=== PATIENT | female | born 1985 | race Hispanic/Latino ===

== ENCOUNTER 2019-08-15 12:46 | Inpatient (IN) ==
--- NOTE | 2019-08-15 13:27 | PROVIDER DOCUMENTATION ---
This chart was entered by Katie Linares Scribe, acting as scribe for Hima Best MD. HPI-Female /OB/Breast - General Chief Complaint: OB >20 weeks Stated Complaint: HAVING CONTRACTIONS Time Seen by Provider: 08/15/19 13:11 Source: reports: patient, family () Allergies/Adverse Reactions: Patient Allergies Allergy/AdvReac Type Severity Reaction Status Date / Time No Known Allergies Allergy Verified 08/15/19 13:00 - History of Present Illness-Female /OB Nature of Presenting Problem: 33 y/o female presents to the ED with pelvic pain every 10 minutes, . The patient states she is nine months gestation and no care has been received. Does patient report she is ?: Yes (40 weeks ) Quality of Pain: reports: cramping Onset/Duration: reports: this afternoon Timing: reports: getting worse Vaginal Symptoms: reports: no symptoms Vaginal Bleeding Amount: None Urinary Symptoms: reports: no symptoms Similar Symptoms Previously?: Yes Recently seen or treated by another doctor?: No - LMP/ History Menstrual Status: missed : 5 Para: 4 Review of Systems - Adult - REVIEW OF SYSTEMS - ADULT Constitutional: denies: chills, fever, night sweats Eyes: reports: no symptoms reported Ears, Nose, Mouth & Throat: reports: no symptoms reported Cardiovascular: reports: no symptoms reported Respiratory: reports: no symptoms reported Gastrointestinal: denies: constipation, diarrhea, vomiting Genitourinary: reports: other (9 months gestation). denies: dysuria, discharge, hematuria Musculoskeletal: reports: no symptoms reported Integumentary: reports: no symptoms reported Neurological: reports: no symptoms reported Psychiatric: reports: no symptoms reported Endocrine: reports: no symptoms reported Hematologic/Lymphatic: reports: no symptoms reported Allergic/Immunologic: reports: no symptoms reported All Other Systems: Reviewed and Negative Past History - Adult - PAST MEDICAL HISTORY-ADULT Review of Records: reports: Nursing Assessment Review, Medications Reviewed - IMMUNIZATION STATUS Childhood Immunizations: See Nurse Assessment Flu Vaccine: See Nurse Assessment Physical Exam-General - PHYSICAL EXAM-ADULT Initial Vital Signs Reviewed: Yes - CONSTITUTIONAL General Appearance: alert, no apparent distress - RESPIRATORY Respiratory: lungs clear, normal breath sounds. negative: rales, rhonchi, wheezing - CARDIOVASCULAR Cardiovascular: regular rate, rhythm, no gallop - GASTROINTESTINAL (ABDOMEN) Abdominal Exam: non tender, distended - GENITOURINARY Female Genitalia/Pelvic Exam: deferred - MUSCULOSKELETAL Extremity: normal gait - SKIN Integumentary: normal color, warm/dry - NEUROLOGIC Neurologic: grossly normal Progress - PLAN OF CARE/RESULTS Progress/Plan/Lab Results: Vital Signs - 8 hr 08/15/19 12:50 Temperature 98 F Pulse Rate 104 H Respiratory Rate 18 Blood Pressure 147/91 O2 Sat by Pulse Oximetry 95 - REASSESSMENT Reassessment #1 Time Reassessed: 13:20 Status: unchanged (CONTRACTIONS Q 10 MIN, EARLY LABOR V 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 Damon, OB Time Discussed: 13:17 Reason/Comments: 9 months gestation Consult Disposition: Admit (to [facility] FOR MONITORING) Departure - Departure Date of Disposition Decision: 08/15/19 Time of Disposition Decision: 13:19 DIAGNOSIS: Qualifiers: Weeks of gestation: unspecified Qualified Code(s): Z34.90 - Encounter for supervision of normal , unspecified, unspecified trimester Disposition: ADMITTED INPATIENT 09 Certified Medical Emergency: Emergent Condition: Stable Referrals and Follow-Ups: None,PCP [Primary Care Provider] - - Critical Care Note This patient required my direct & personal management of CC.: No Attestation - Physician/ JAMES Attestation Patient care was provided by Advanced Practice Provider:: No The physician spent face to face time with patient:: Yes Advanced Practice Provider documentation review:: Supervising physician onsite and consulted in the evaluation and care of this patient. The physician did have a face to face encounter with the patient. This chart was documented by the indicated scribe, (Katie Linares, Bull) and accurately reflects the services I performed and decisions made by me, Hima Best MD, as attested by the provider's signature.
[2019-08-15] MEDS ORDERED: PEPCID PO ONE (14:40)
[2019-08-15] MEDS ORDERED: PEPCID IV PRN (14:40)
[2019-08-15] MEDS ORDERED: LR 500 ML IV ONE (14:40)
[2019-08-15] MEDS ORDERED: PEPCID PO PRN (14:40)
[2019-08-15] MEDS ORDERED: TYLENOL PO PRN (14:40)
[2019-08-15] MEDS ORDERED: KEFZOL 1 GM/D5W 1 GM/50 ML IVPB IV PRN (14:40)
[2019-08-15] MEDS ORDERED: STADOL IV PRN (14:40)
[2019-08-15] MEDS ORDERED: REGLAN PO ONE (14:40)
[2019-08-15] MEDS ORDERED: ZOFRAN IV PRN (14:40)
[2019-08-15] MEDS ORDERED: AMPICILLIN 2 GM in NS 100 ML IV ONE (14:40)
[2019-08-15] MEDS ORDERED: SODIUM CHLORIDE 0.9% INJ SCH (14:45)
[2019-08-15] MEDS ORDERED: PITOCIN 30 UNITS/NS 30 UNIT/500 ML IV.SOLN IV SCH ×2 (14:45→22:45)
[2019-08-15 15:10] LABS: BASO# 0.01 X1000 (0.0-0.2); BASO% 0.1 % (0.0-0.8); EOS# 0.19 X1000 (0.0-0.7); EOS% 1.8 % (0.0-10.0); HEMATOCRIT 36.5 % (37.0-47.0); HEMOGLOBIN 12.2 g/dL (12.0-16.0); IMM GRAN# 0.03 X1000 (0.0-0.04); IMM GRAN% 0.3 % (0.0-0.5); LYMPH# 2.03 X1000 (1.2-3.4); LYMPH% 19.1 % (20.5-51.1); MCH 28.4 PG (27-31); MCHC 33.4 g/dL (33-37); MCV 84.9 FL (81-99); MONO# 0.48 X1000 (0.11-0.59); MONO% 4.5 % (1.7-9.3); MPV 12.6 FL (7.4-10.4); NEUT# 7.87 X1000 (1.4-6.5); NEUT% 74.2 % (42.2-75.2); PLT 184 X1000 (130-400); RDW 13.4 % (11.5-14.5); WBC 10.61 X1000 (4.8-10.8)
[2019-08-15] MEDS: LR 1,000 ML IV SCH (15:24)
[2019-08-15 15:39] LABS: URINE SOURCE CATH
[2019-08-15 15:47] LABS: BILIRUBIN URINE NEGATIVE (NEGATIVE); BLOOD URINE NEGATIVE (NEGATIVE); COLOR YELLOW; GLUCOSE URINE NEGATIVE (NEGATIVE); KETONE URINE NEGATIVE (NEGATIVE); LEUKOCYTES URINE NEGATIVE (NEGATIVE); NITRITE URINE NEGATIVE (NEGATIVE); PROTEIN URINE TRACE mg/dL (NEGATIVE); SP GRAVITY URINE 1.017; TURBIDITY URINE CLEAR (CLEAR); UROBILINOGEN URINE NORMAL (NORMAL)
[2019-08-15 15:54] LABS: UR AMPHETAMINES QUAL NONE DETECTED (NONE DETECT); UR BARBITUATES QUAL NONE DETECTED (NONE DETECT); UR BENZODIAZEPIN QUAL NONE DETECTED (NONE DETECT); UR CANNABINOIDS QUAL NONE DETECTED (NONE DETECT); UR COCAINE QUAL NONE DETECTED (NONE DETECT); UR METHADONE QUAL NONE DETECTED (NONE DETECT); UR OPIATES QUAL NONE DETECTED (NONE DETECT); UR OXYCODONE QUAL NONE DETECTED (NONE DETECT); UR PCP QUAL NONE DETECTED (NONE DETECT)
[2019-08-15 15:56] LABS: RPR NON-REACTIVE (NONREACTIVE); RUBELLA SCREEN IMMUNE (IMMUNE)
[2019-08-15 15:58] LABS: RAPID HIV PRESUMPTIVE NEGATIVE
--- NOTE | 2019-08-15 16:05 | OB/GYN PROGRESS NOTE ---
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 PATHOLOGY ASSISTANT Progress Note: Vital Signs - 24 hr 08/15/19 12:50 08/15/19 14:45 Temperature 98 F 97.7 F Pulse Rate 104 H 100 H Respiratory Rate 18 20 Blood Pressure 147/91 138/74 O2 Sat by Pulse Oximetry 95 98 Laboratory Results - last 24 hr 08/15/19 08/15/19 08/15/19 14:50 14:50 14:50 WBC 10.61 RBC 4.30 Hgb 12.2 Hct 36.5 L MCV 84.9 MCH 28.4 MCHC 33.4 RDW Std Deviation 13.4 Plt Count 184 MPV 12.6 H Immature Gran % (Auto) 0.3 Neut % (Auto) 74.2 Lymph % (Auto) 19.1 L [place] % (Auto) 4.5 Eos % (Auto) 1.8 Baso % (Auto) 0.1 Immature Gran # (Auto) 0.03 Neut # (Auto) 7.87 H Lymph # (Auto) 2.03 [place] # (Auto) 0.48 Eos # (Auto) 0.19 Baso # (Auto) 0.01 Glucose 93 Urine Source Urine Color Urine Turbidity Urine pH Ur Specific [place] Urine Protein Ur Glucose (Stick) Ur Ketones (Stick) Urine Blood Urine Nitrite Urine Bilirubin Urobilinogen Dipstick Urine Leukocytes Urine Opiates Screen Ur Oxycodone Screen Ur Methadone, Qual Ur Barbiturates Screen Ur Phencyclidine Scrn Ur Amphetamines Screen U Benzodiazepines Scrn Urine Cocaine Screen U Cannabinoids Screen RPR NON-REACTIVE Rubella Immunity Screen IMMUNE Blood Type Antibody Screen 08/15/19 08/15/19 08/15/19 14:50 15:30 15:30 WBC RBC Hgb Hct MCV MCH MCHC RDW Std Deviation Plt Count MPV Immature Gran % (Auto) Neut % (Auto) Lymph % (Auto) [place] % (Auto) Eos % (Auto) Baso % (Auto) Immature Gran # (Auto) Neut # (Auto) Lymph # (Auto) [place] # (Auto) Eos # (Auto) Baso # (Auto) Glucose Urine Source CATH Urine Color YELLOW Urine Turbidity CLEAR Urine pH 6.0 Ur Specific [place] 1.017 Urine Protein TRACE A Ur Glucose (Stick) NEGATIVE Ur Ketones (Stick) NEGATIVE Urine Blood NEGATIVE Urine Nitrite NEGATIVE Urine Bilirubin NEGATIVE Urobilinogen Dipstick NORMAL Urine Leukocytes NEGATIVE Urine Opiates Screen NONE DETECTED Ur Oxycodone Screen NONE DETECTED Ur Methadone, Qual NONE DETECTED Ur Barbiturates Screen NONE DETECTED Ur Phencyclidine Scrn NONE DETECTED Ur Amphetamines Screen NONE DETECTED U Benzodiazepines Scrn NONE DETECTED Urine Cocaine Screen NONE DETECTED U Cannabinoids Screen NONE DETECTED RPR Rubella Immunity Screen Blood Type B POSITIVE Antibody Screen NEGATIVE HISTORY AND PHYSICAL History obtained via a [place]er phone ict teacher from the patient and from her . S: 33 yo [place] presenting to [facility] and transferred to [facility] with 10 min uterine contractions and DELIO 08-16-2019 by a single sono at uncertain EGA and no other care. She notes onset of intermittent labor pains 0600, an episode of bleeding, and no further bleeding and no ROM, no decreased movement, and no PIH symptoms. triage evaluation includes 6 cm, high station, BOWI and category I tracing from baseline 140 Other ROS is clear Ob history includes three deliveries in [facility], one "here", with no medical, obstetric, delivery or complications by her history. PMHx is neg for allergies; hospitalizations other than deliveries; surgery; medications; or ongoing medical problems SocHx negative for toxic habits Exam NAD HEENT NC AT Chest clear to auscultation to bases. Nl respiratory effort Abd soft, nontender : Fundus soft between UCs, nontender, longitudinal lie, c/w term dates. Bedside sono confirms cephalic presentation and subjectively normal AFV Neruo intact MSK nl gait Ext no tenderness or excessive swelling heart rate tracing Category I, reactive, baseline 140, moderate external BTBV, accelerations, episodes of missed beats, UCs 3-4 50-60 seconds duration All Active Problems (Acute) Multigravida of advanced maternal age in third trimester (Acute) No care in current in third trimester (Acute) Irregular heart rhythm in fetus (Acute) Non-Divehi speaking patient (Acute) PLAN Presumptive Ampicillin prophylaxis maternal monitoring AROM when appropriate Expect Analgesia declined Notidy nursery of absent PNC, presumptive GBS prophylaxis, episodic missed beats
--- NOTE | 2019-08-15 18:12 | OB/GYN PROGRESS NOTE ---
- Subjective Pt notes increased contraction pain O VSS AF category I FHRT UCs q3 min SVE /-2 BOWI bulging with small amount blood stained mucous "show" A/P Continue labor Second dose Ampicillin due 1900 Nursery aware OB Physical Exam Vital Signs - 8 hr 08/15/19 12:50 08/15/19 14:45 Temperature 98 F 97.7 F Pulse Rate 104 H 100 H Respiratory Rate 18 20 Blood Pressure 147/91 138/74 O2 Sat by Pulse Oximetry 95 98 - CONSTITUTIONAL General Appearance: alert, no apparent distress Active Medications Generic Name Dose Route Start Last Admin Trade Name Freq PRN Reason Stop Dose Admin Acetaminophen 650 mg 08/15/19 14:40 Tylenol PO Q4-6H PRN PRN Headache Butorphanol Tartrate 2 mg 08/15/19 14:40 Stadol IV PRN PRN Pain Famotidine 20 mg 08/15/19 14:40 Pepcid IV Q12H PRN PRN GI upset or indigestion Famotidine 40 mg 08/15/19 14:40 Pepcid PO Q12H PRN PRN GI upset or indigestion Ampicillin Sodium 1 gm/ Sodium 50 mls @ 100 mls/hr 08/15/19 18:45 Chloride IV Q4H DELIO Cefazolin Sodium/Dextrose 1 gm in 50 mls @ 100 mls/hr 08/15/19 14:40 Kefzol 1 Gm/D5w IV ONCE PRN PRN SECTION Lactated Ringer's 1,000 mls @ 125 mls/hr 08/15/19 14:45 08/15/19 15:24 Lr IV 125 mls/hr .Q8H DELIO Administration Oxytocin/Sodium Chloride 30 unit in 500 mls @ 0 mls/hr 08/15/19 14:45 Pitocin 30 Units/Ns IV .Q0M DELIO As Directed Ondansetron HCl 4 mg 08/15/19 14:40 Zofran IV PRN PRN Nausea Sodium Chloride 5 - 10 ml 08/15/19 14:45 Sodium Chloride 0.9% INJ DIRECTED DELIO Laboratory Results - last 24 hr 08/15/19 08/15/19 08/15/19 14:50 14:50 14:50 WBC 10.61 RBC 4.30 Hgb 12.2 Hct 36.5 L MCV 84.9 MCH 28.4 MCHC 33.4 RDW Std Deviation 13.4 Plt Count 184 MPV 12.6 H Immature Gran % (Auto) 0.3 Neut % (Auto) 74.2 Lymph % (Auto) 19.1 L [place] % (Auto) 4.5 Eos % (Auto) 1.8 Baso % (Auto) 0.1 Immature Gran # (Auto) 0.03 Neut # (Auto) 7.87 H Lymph # (Auto) 2.03 [place] # (Auto) 0.48 Eos # (Auto) 0.19 Baso # (Auto) 0.01 Glucose 93 Urine Source Urine Color Urine Turbidity Urine pH Ur Specific [place] Urine Protein Ur Glucose (Stick) Ur Ketones (Stick) Urine Blood Urine Nitrite Urine Bilirubin Urobilinogen Dipstick Urine Leukocytes Urine Opiates Screen Ur Oxycodone Screen Ur Methadone, Qual Ur Barbiturates Screen Ur Phencyclidine Scrn Ur Amphetamines Screen U Benzodiazepines Scrn Urine Cocaine Screen U Cannabinoids Screen RPR NON-REACTIVE HIV 1&2 Antibody Rapid PRESUMPTIVE NEGATIVE Rubella Immunity Screen IMMUNE Blood Type Blood Type Confirm Antibody Screen 08/15/19 08/15/19 08/15/19 14:50 15:30 15:30 WBC RBC Hgb Hct MCV MCH MCHC RDW Std Deviation Plt Count MPV Immature Gran % (Auto) Neut % (Auto) Lymph % (Auto) [place] % (Auto) Eos % (Auto) Baso % (Auto) Immature Gran # (Auto) Neut # (Auto) Lymph # (Auto) [place] # (Auto) Eos # (Auto) Baso # (Auto) Glucose Urine Source CATH Urine Color YELLOW Urine Turbidity CLEAR Urine pH 6.0 Ur Specific [place] 1.017 Urine Protein TRACE A Ur Glucose (Stick) NEGATIVE Ur Ketones (Stick) NEGATIVE Urine Blood NEGATIVE Urine Nitrite NEGATIVE Urine Bilirubin NEGATIVE Urobilinogen Dipstick NORMAL Urine Leukocytes NEGATIVE Urine Opiates Screen NONE DETECTED Ur Oxycodone Screen NONE DETECTED Ur Methadone, Qual NONE DETECTED Ur Barbiturates Screen NONE DETECTED Ur Phencyclidine Scrn NONE DETECTED Ur Amphetamines Screen NONE DETECTED U Benzodiazepines Scrn NONE DETECTED Urine Cocaine Screen NONE DETECTED U Cannabinoids Screen NONE DETECTED RPR HIV 1&2 Antibody Rapid Rubella Immunity Screen Blood Type B POSITIVE Blood Type Confirm Antibody Screen NEGATIVE 08/15/19 15:45 WBC RBC Hgb Hct MCV MCH MCHC RDW Std Deviation Plt Count MPV Immature Gran % (Auto) Neut % (Auto) Lymph % (Auto) [place] % (Auto) Eos % (Auto) Baso % (Auto) Immature Gran # (Auto) Neut # (Auto) Lymph # (Auto) [place] # (Auto) Eos # (Auto) Baso # (Auto) Glucose Urine Source Urine Color Urine Turbidity Urine pH Ur Specific [place] Urine Protein Ur Glucose (Stick) Ur Ketones (Stick) Urine Blood Urine Nitrite Urine Bilirubin Urobilinogen Dipstick Urine Leukocytes Urine Opiates Screen Ur Oxycodone Screen Ur Methadone, Qual Ur Barbiturates Screen Ur Phencyclidine Scrn Ur Amphetamines Screen U Benzodiazepines Scrn Urine Cocaine Screen U Cannabinoids Screen RPR HIV 1&2 Antibody Rapid Rubella Immunity Screen Blood Type Blood Type Confirm B POSITIVE Antibody Screen
[2019-08-15] MEDS: AMPICILLIN 1 GM in NS 50 ML IV SCH (19:01)
[2019-08-15] MEDS ORDERED: XYLOCAINE-MPF 1% INJ ONE (19:06)
[2019-08-15] MEDS ORDERED: MINERAL OIL PO ONE (19:06)
[2019-08-15] MEDS ORDERED: TYLENOL PO ONE (20:25)
[2019-08-15] MEDS ORDERED: BOOSTRIX VACCINE IM ONE (22:41)
[2019-08-15] MEDS ORDERED: CYTOTEC PO PRN (22:41)
[2019-08-15] MEDS ORDERED: MINERAL OIL PO PRN (22:41)
[2019-08-15] MEDS ORDERED: BENADRYL PO PRN (22:41)
[2019-08-15] MEDS ORDERED: BENADRYL IV PRN (22:41)
[2019-08-15] MEDS ORDERED: PERI MEDS (DERMOPLAST/NUPERCAINAL/TUCKS) MISC PRN (22:41)
[2019-08-15] MEDS ORDERED: M-M-R II VACCINE SUBQ ONE (22:41)
[2019-08-15] MEDS ORDERED: PITOCIN IM PRN (22:41)
--- NOTE | 2019-08-15 22:41 | OB/GYN PROGRESS NOTE ---
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 Progress Note: Vital Signs - 24 hr 08/15/19 12:50 08/15/19 14:45 Temperature 98 F 97.7 F Pulse Rate 104 H 100 H Respiratory Rate 18 20 Blood Pressure 147/91 138/74 O2 Sat by Pulse Oximetry 95 98 Laboratory Results - last 24 hr 08/15/19 08/15/19 08/15/19 14:50 14:50 14:50 WBC 10.61 RBC 4.30 Hgb 12.2 Hct 36.5 L MCV 84.9 MCH 28.4 MCHC 33.4 RDW Std Deviation 13.4 Plt Count 184 MPV 12.6 H Immature Gran % (Auto) 0.3 Neut % (Auto) 74.2 Lymph % (Auto) 19.1 L [place] % (Auto) 4.5 Eos % (Auto) 1.8 Baso % (Auto) 0.1 Immature Gran # (Auto) 0.03 Neut # (Auto) 7.87 H Lymph # (Auto) 2.03 [place] # (Auto) 0.48 Eos # (Auto) 0.19 Baso # (Auto) 0.01 Glucose 93 Urine Source Urine Color Urine Turbidity Urine pH Ur Specific [place] Urine Protein Ur Glucose (Stick) Ur Ketones (Stick) Urine Blood Urine Nitrite Urine Bilirubin Urobilinogen Dipstick Urine Leukocytes Urine Opiates Screen Ur Oxycodone Screen Ur Methadone, Qual Ur Barbiturates Screen Ur Phencyclidine Scrn Ur Amphetamines Screen U Benzodiazepines Scrn Urine Cocaine Screen U Cannabinoids Screen RPR NON-REACTIVE HIV 1&2 Antibody Rapid PRESUMPTIVE NEGATIVE Rubella Immunity Screen IMMUNE Blood Type Blood Type Confirm Antibody Screen 08/15/19 08/15/19 08/15/19 14:50 15:30 15:30 WBC RBC Hgb Hct MCV MCH MCHC RDW Std Deviation Plt Count MPV Immature Gran % (Auto) Neut % (Auto) Lymph % (Auto) [place] % (Auto) Eos % (Auto) Baso % (Auto) Immature Gran # (Auto) Neut # (Auto) Lymph # (Auto) [place] # (Auto) Eos # (Auto) Baso # (Auto) Glucose Urine Source CATH Urine Color YELLOW Urine Turbidity CLEAR Urine pH 6.0 Ur Specific [place] 1.017 Urine Protein TRACE A Ur Glucose (Stick) NEGATIVE Ur Ketones (Stick) NEGATIVE Urine Blood NEGATIVE Urine Nitrite NEGATIVE Urine Bilirubin NEGATIVE Urobilinogen Dipstick NORMAL Urine Leukocytes NEGATIVE Urine Opiates Screen NONE DETECTED Ur Oxycodone Screen NONE DETECTED Ur Methadone, Qual NONE DETECTED Ur Barbiturates Screen NONE DETECTED Ur Phencyclidine Scrn NONE DETECTED Ur Amphetamines Screen NONE DETECTED U Benzodiazepines Scrn NONE DETECTED Urine Cocaine Screen NONE DETECTED U Cannabinoids Screen NONE DETECTED RPR HIV 1&2 Antibody Rapid Rubella Immunity Screen Blood Type B POSITIVE Blood Type Confirm Antibody Screen NEGATIVE 08/15/19 15:45 WBC RBC Hgb Hct MCV MCH MCHC RDW Std Deviation Plt Count MPV Immature Gran % (Auto) Neut % (Auto) Lymph % (Auto) [place] % (Auto) Eos % (Auto) Baso % (Auto) Immature Gran # (Auto) Neut # (Auto) Lymph # (Auto) [place] # (Auto) Eos # (Auto) Baso # (Auto) Glucose Urine Source Urine Color Urine Turbidity Urine pH Ur Specific [place] Urine Protein Ur Glucose (Stick) Ur Ketones (Stick) Urine Blood Urine Nitrite Urine Bilirubin Urobilinogen Dipstick Urine Leukocytes Urine Opiates Screen Ur Oxycodone Screen Ur Methadone, Qual Ur Barbiturates Screen Ur Phencyclidine Scrn Ur Amphetamines Screen U Benzodiazepines Scrn Urine Cocaine Screen U Cannabinoids Screen RPR HIV 1&2 Antibody Rapid Rubella Immunity Screen Blood Type Blood Type Confirm B POSITIVE Antibody Screen DELIVERY NOTE All Active Problems Meconium stained amniotic fluid, delivered, current hospitalization (Acute) Nuchal cord with compression, delivered, current hospitalization (Acute) Non-Swazi speaking patient (Acute) Irregular heart rhythm in fetus (Acute) No care in current in third trimester (Acute) Multigravida of advanced maternal age in third trimester (Acute) (Acute) PROCEDURE: Spontaneous sterile controlled vaginal delivery ATTENDANT: Jose F Bryant MD COMPLICATIONS: None EBL: 150 mL PROPHYLAXIS: Ampicillin 2 g (2 doses) COMPLICATIONS: None FINDINGS: VMI from CHINEDU position over intact perineum at 2134 hours, with tight nuchal cord x 2 clamped and cut on the perineum Apgars 7, 10 Arterial cord gas with pH 7.25, pCO2 55, pO2 13, HCO3 19.1, base excess -4.2 Three vessel cord. Pale green stained placenta and membranes without significant infarctions or calcifications Bimanual massage with good tone and no retained clot or products. Cervix, upper vagina, vulva, and perineum free of lacerations. LABOR COURSE: Following presentation early afternoon at 6 cm and high station, the patient progressed spontaneously to 8/90%/-2 BOWI at ~1800 hours. at ~2000 hours the patient complained of a headache and feeling flushed with temperature 100 degrees. Tracing remained Category I throughout until AROM of thick, pale green meconium at 2124 hours with cervix 8/100/-1 with thickening of the right anterior cervix. Deep variables to 60 bpm occured, managed with positioning and IV fluid bolus. Re-examination revealed descent to 0+ station and involuntary pushing. DELIVERY: I assisted with positioning the patient for delivery and reduced the cervical lip with massage while nursery personnel and plastic molding operator controlled atmospheric furnace brazer were notified. Prompt decent to occurred followed by a controlled sterile vaginal delivery. (The perineum had been cleansed just prior to AROM.) Tight nuchal cord x 2 required sharp reduction. Gentle traction on the head was used to guide the shoulders and completed the delivery The child was handed to nursing staff in attendance. Infusion of Pitocin was initiated. A segment of cord was clamped and cut for arterial gases. Cord blood sample was obtained. Placenta was delivered with gentle traction and fundal massage at 2140 hours. Bimanual massage was completed. Cervix, upper vagina, vulva and perineum were examined. DISPOSITION: At this dictation, mother and child are doing well.
[2019-08-15] MEDS ORDERED: PITOCIN 20 UNITS/NS 20 UNITS/1,000 ML IV.SOLN IV SCH (22:45)
[2019-08-15] MEDS: MOTRIN PO PRN (23:09)
--- NOTE | 2019-08-15 23:37 | PROVIDER PROGRESS NOTE ---
Progress Note blood pressure elevation has persisted ~170/70 Initial labs included normal platelets Will begin Labetalol 100 mg q12h and check PIH labs
[2019-08-16 00:01] LABS: BASO# 0.01 X1000 (0.0-0.2); BASO% 0.1 % (0.0-0.8); EOS# 0.02 X1000 (0.0-0.7); EOS% 0.1 % (0.0-10.0); HEMATOCRIT 35.9 % (37.0-47.0); HEMOGLOBIN 11.9 g/dL (12.0-16.0); IMM GRAN# 0.06 X1000 (0.0-0.04); IMM GRAN% 0.4 % (0.0-0.5); LYMPH# 1.34 X1000 (1.2-3.4); LYMPH% 8.2 % (20.5-51.1); MCH 28.1 PG (27-31); MCHC 33.1 g/dL (33-37); MCV 84.9 FL (81-99); MONO# 0.64 X1000 (0.11-0.59); MONO% 3.9 % (1.7-9.3); NEUT# 14.26 X1000 (1.4-6.5); NEUT% 87.3 % (42.2-75.2); PLT 163 X1000 (130-400); RBC 4.23 XMIL (4.2-5.4); RDW 13.3 % (11.5-14.5); WBC 16.33 X1000 (4.8-10.8)
[2019-08-16] MEDS: TRANDATE PO SCH ×3 (00:06→21:03)
[2019-08-16 00:27] LABS: BANDS 2 % (0-1); LYMPHS 8 % (21-51); SEGS 88 % (42-75)
[2019-08-16 00:37] LABS: AGAP 17; ALB/GLOB RATIO 0.9; ALBUMIN 2.8 g/dL (3.5-5.0); ALKALINE PHOSPHATASE 159 U/L (32-104); BUN 8 mg/dL (8-22); CALCIUM 7.9 mg/dL (8.8-10.2); CHLORIDE 102 mmol/L (98-107); COSMO 271; CREATININE 0.4 mg/dL (0.5-0.9); ESTIMATED GFR > 60; GLUCOSE 146 mg/dL (70-104); GOT 28 U/L (10-30); GPT 18 U/L (10-36); POTASSIUM 3.5 mmol/L (3.5-5.1); SODIUM 135 mmol/L (136-145); TCO2 16 mmol/L (25-35); TOTAL BILIRUBIN 0.45 mg/dL (0.20-1.00); TOTAL PROTEIN 5.8 g/dL (6.3-8.3); URIC ACID 5.4 mg/dL (2.4-5.7)
[2019-08-16] MEDS: LR 1,000 ML IV SCH (02:24)
[2019-08-16] MEDS: AMPICILLIN 1 GM in NS 50 ML IV SCH (02:24)
[2019-08-16 05:06] LABS: BASO# 0.01 X1000 (0.0-0.2); BASO% 0.1 % (0.0-0.8); EOS# 0.02 X1000 (0.0-0.7); EOS% 0.1 % (0.0-10.0); HEMOGLOBIN 10.8 g/dL (12.0-16.0); IMM GRAN# 0.05 X1000 (0.0-0.04); IMM GRAN% 0.3 % (0.0-0.5); LYMPH# 2.23 X1000 (1.2-3.4); LYMPH% 14.6 % (20.5-51.1); MCH 27.8 PG (27-31); MCHC 32.7 g/dL (33-37); MCV 84.8 FL (81-99); MONO# 0.75 X1000 (0.11-0.59); MONO% 4.9 % (1.7-9.3); NEUT# 12.19 X1000 (1.4-6.5); PLT 175 X1000 (130-400); RBC 3.89 XMIL (4.2-5.4); RDW 13.3 % (11.5-14.5); WBC 15.25 X1000 (4.8-10.8)
--- NOTE | 2019-08-16 07:53 | OB/GYN PROGRESS NOTE ---
Progress Note [employer] [employer] - . Patient Problems: Current Active Problems Problem Status Onset induced hypertension, delivered, with complication Acute Nuchal cord with compression, delivered, current hospitalization Acute Meconium stained amniotic fluid, delivered, current hospitalization Acute Non-Pakistani speaking patient Acute Irregular heart rhythm in fetus Acute No care in current in third trimester Acute Multigravida of advanced maternal age in third trimester Acute Acute [employer] Progress Note: Vital Signs - 24 hr 08/15/19 12:50 08/15/19 14:45 08/15/19 19:00 Temperature 98 F 97.7 F 98.7 F Pulse Rate 104 H 100 H 82 Respiratory Rate 18 20 18 Blood Pressure 147/91 138/74 143/80 O2 Sat by Pulse Oximetry 95 98 97 08/15/19 20:00 08/15/19 21:15 08/15/19 21:45 Temperature 98.9 F 100 F H 99.3 F Pulse Rate 73 83 81 Respiratory Rate 18 18 18 Blood Pressure 150/82 144/89 157/71 O2 Sat by Pulse Oximetry 96 96 100 08/16/19 01:06 08/16/19 04:00 Temperature 97.9 F Pulse Rate 69 66 Respiratory Rate 16 16 Blood Pressure 148/65 142/65 O2 Sat by Pulse Oximetry 98 98 Laboratory Results - last 24 hr 08/15/19 08/15/19 08/15/19 14:50 14:50 14:50 WBC 10.61 RBC 4.30 Hgb 12.2 Hct 36.5 L MCV 84.9 MCH 28.4 MCHC 33.4 RDW Std Deviation 13.4 Plt Count 184 MPV 12.6 H Immature Gran % (Auto) 0.3 Neut % (Auto) 74.2 Lymph % (Auto) 19.1 L [place] % (Auto) 4.5 Eos % (Auto) 1.8 Baso % (Auto) 0.1 Immature Gran # (Auto) 0.03 Neut # (Auto) 7.87 H Lymph # (Auto) 2.03 [place] # (Auto) 0.48 Eos # (Auto) 0.19 Baso # (Auto) 0.01 Segmented Neutrophils Band Neutrophils Lymphocytes Unidentified Cells Sodium Potassium Chloride Carbon Dioxide Anion Gap BUN Creatinine Estimated GFR/1.73 m2 BUN/Creatinine Ratio Glucose 93 Calculated Osmolality Uric Acid Calcium Total Bilirubin AST ALT Alkaline Phosphatase Total Protein Albumin Globulin Albumin/Globulin Ratio Urine Source Urine Color Urine Turbidity Urine pH Ur Specific [place] Urine Protein Ur Glucose (Stick) Ur Ketones (Stick) Urine Blood Urine Nitrite Urine Bilirubin Urobilinogen Dipstick Urine Leukocytes Urine Opiates Screen Ur Oxycodone Screen Ur Methadone, Qual Ur Barbiturates Screen Ur Phencyclidine Scrn Ur Amphetamines Screen U Benzodiazepines Scrn Urine Cocaine Screen U Cannabinoids Screen RPR NON-REACTIVE HIV 1&2 Antibody Rapid PRESUMPTIVE NEGATIVE Rubella Immunity Screen IMMUNE Blood Type Blood Type Confirm Antibody Screen 08/15/19 08/15/19 08/15/19 14:50 15:30 15:30 WBC RBC Hgb Hct MCV MCH MCHC RDW Std Deviation Plt Count MPV Immature Gran % (Auto) Neut % (Auto) Lymph % (Auto) [place] % (Auto) Eos % (Auto) Baso % (Auto) Immature Gran # (Auto) Neut # (Auto) Lymph # (Auto) [place] # (Auto) Eos # (Auto) Baso # (Auto) Segmented Neutrophils Band Neutrophils Lymphocytes Unidentified Cells Sodium Potassium Chloride Carbon Dioxide Anion Gap BUN Creatinine Estimated GFR/1.73 m2 BUN/Creatinine Ratio Glucose Calculated Osmolality Uric Acid Calcium Total Bilirubin AST ALT Alkaline Phosphatase Total Protein Albumin Globulin Albumin/Globulin Ratio Urine Source CATH Urine Color YELLOW Urine Turbidity CLEAR Urine pH 6.0 Ur Specific [place] 1.017 Urine Protein TRACE A Ur Glucose (Stick) NEGATIVE Ur Ketones (Stick) NEGATIVE Urine Blood NEGATIVE Urine Nitrite NEGATIVE Urine Bilirubin NEGATIVE Urobilinogen Dipstick NORMAL Urine Leukocytes NEGATIVE Urine Opiates Screen NONE DETECTED Ur Oxycodone Screen NONE DETECTED Ur Methadone, Qual NONE DETECTED Ur Barbiturates Screen NONE DETECTED Ur Phencyclidine Scrn NONE DETECTED Ur Amphetamines Screen NONE DETECTED U Benzodiazepines Scrn NONE DETECTED Urine Cocaine Screen NONE DETECTED U Cannabinoids Screen NONE DETECTED RPR HIV 1&2 Antibody Rapid Rubella Immunity Screen Blood Type B POSITIVE Blood Type Confirm Antibody Screen NEGATIVE 08/15/19 08/15/19 08/15/19 15:45 23:47 23:47 WBC 16.33 H RBC 4.23 Hgb 11.9 L Hct 35.9 L MCV 84.9 MCH 28.1 MCHC 33.1 RDW Std Deviation 13.3 Plt Count 163 MPV 12.0 H Immature Gran % (Auto) 0.4 Neut % (Auto) 87.3 H Lymph % (Auto) 8.2 L [place] % (Auto) 3.9 Eos % (Auto) 0.1 Baso % (Auto) 0.1 Immature Gran # (Auto) 0.06 H Neut # (Auto) 14.26 H Lymph # (Auto) 1.34 [place] # (Auto) 0.64 H Eos # (Auto) 0.02 Baso # (Auto) 0.01 Segmented Neutrophils 88 H Band Neutrophils 2 H Lymphocytes 8 L Unidentified Cells 2.0 Sodium 135 L Potassium 3.5 Chloride 102 Carbon Dioxide 16 L Anion Gap 17 BUN 8 Creatinine 0.4 L Estimated GFR/1.73 m2 > 60 BUN/Creatinine Ratio 20 Glucose 146 H D Calculated Osmolality 271 Uric Acid 5.4 Calcium 7.9 L Total Bilirubin 0.45 AST 28 ALT 18 Alkaline Phosphatase 159 H Total Protein 5.8 L Albumin 2.8 L Globulin 3.0 Albumin/Globulin Ratio 0.9 Urine Source Urine Color Urine Turbidity Urine pH Ur Specific [place] Urine Protein Ur Glucose (Stick) Ur Ketones (Stick) Urine Blood Urine Nitrite Urine Bilirubin Urobilinogen Dipstick Urine Leukocytes Urine Opiates Screen Ur Oxycodone Screen Ur Methadone, Qual Ur Barbiturates Screen Ur Phencyclidine Scrn Ur Amphetamines Screen U Benzodiazepines Scrn Urine Cocaine Screen U Cannabinoids Screen RPR HIV 1&2 Antibody Rapid Rubella Immunity Screen Blood Type Blood Type Confirm B POSITIVE Antibody Screen 08/16/19 08/16/19 05:03 05:03 WBC 15.25 H RBC 3.89 L Hgb 10.8 L Hct 33.0 L MCV 84.8 MCH 27.8 MCHC 32.7 L RDW Std Deviation 13.3 Plt Count 175 MPV 12.0 H Immature Gran % (Auto) 0.3 Neut % (Auto) 80.0 H Lymph % (Auto) 14.6 L [place] % (Auto) 4.9 Eos % (Auto) 0.1 Baso % (Auto) 0.1 Immature Gran # (Auto) 0.05 H Neut # (Auto) 12.19 H Lymph # (Auto) 2.23 [place] # (Auto) 0.75 H Eos # (Auto) 0.02 Baso # (Auto) 0.01 Segmented Neutrophils Band Neutrophils Lymphocytes Unidentified Cells Sodium Potassium Chloride Carbon Dioxide Anion Gap BUN Creatinine Estimated GFR/1.73 m2 BUN/Creatinine Ratio Glucose 106 H Calculated Osmolality Uric Acid Calcium Total Bilirubin AST ALT Alkaline Phosphatase Total Protein Albumin Globulin Albumin/Globulin Ratio Urine Source Urine Color Urine Turbidity Urine pH Ur Specific [place] Urine Protein Ur Glucose (Stick) Ur Ketones (Stick) Urine Blood Urine Nitrite Urine Bilirubin Urobilinogen Dipstick Urine Leukocytes Urine Opiates Screen Ur Oxycodone Screen Ur Methadone, Qual Ur Barbiturates Screen Ur Phencyclidine Scrn Ur Amphetamines Screen U Benzodiazepines Scrn Urine Cocaine Screen U Cannabinoids Screen RPR HIV 1&2 Antibody Rapid Rubella Immunity Screen Blood Type Blood Type Confirm Antibody Screen Day #1/2 S: Patient interviewed with litigation counsel phone line #[phone]. She denies further headache, as well as visual changes, upper abdominal pain, or increased facial, hand or lower extremity edema. She requests a note for her daughter to stay O: Elevated BP 170/70 immediately noted with good response to Labetalol 100 mg q12h and labs normal. She noted a headache during labor, resolved post delivery. Recheck fasting BG 106 mg/dL Labs as noted above Exam: NAD. Good spirits Chest nl respiratory effort, clear to auscultation to the bases CVS RRR w/o murmurs Abdomen soft, nonteedr fundus firm u-2 Neuro Patellar DTR 2+. Clonus absent All Active Problems induced hypertension, delivered, with complication (Acute) Nuchal cord with compression, delivered, current hospitalization (Acute) Meconium stained amniotic fluid, delivered, current hospitalization (Acute) Non-Pakistani speaking patient (Acute) Irregular heart rhythm in fetus (Acute) No care in current in third trimester (Acute) Multigravida of advanced maternal age in third trimester (Acute) (Acute) PLAN: Continue IV lock until this evening as lomng as BP nl Observe closely for pre syncope on Labetalol check [id number] Anticipate DC tomorrow SW consult prior to discharge Excuse for school for her daughter michael Jane for two weeks until patient is able to take her to the bus stop.
[2019-08-16] MEDS: MOTRIN PO PRN ×2 (08:30→21:03)
[2019-08-16 09:02] LABS: HEMOGLOBIN A1C 6.2 % (4.8-6.0)
[2019-08-16 09:28] LABS: HIV ANTIBODY SCREEN SEE COMMENTS
[2019-08-16 10:00] LABS: HEPATITIS B SURFACE ANTIGEN SEE COMMENTS
[2019-08-16] MEDS ORDERED: PERICOLACE PO SCH (21:00)
--- NOTE | 2019-08-17 07:23 | OB/GYN PROGRESS NOTE ---
- Subjective Pt seen and examined. Currently w/o complaints. Ambulating and urinating without difficulty. Tolerating regular diet. Denies pain, winters, sob, scotomata, epigastric pain, fever, chills, n/v. +Bottle feeding, decreased lochia. OB Physical Exam Vital Signs - 8 hr 08/17/19 00:35 08/17/19 04:35 Temperature 97.2 F L 98.1 F Pulse Rate 64 81 Respiratory Rate 16 16 Blood Pressure 146/70 121/73 O2 Sat by Pulse Oximetry 96 96 - CONSTITUTIONAL General Appearance: appears well, alert, no apparent distress - RESPIRATORY Respiratory: lungs clear, normal breath sounds - CARDIOVASCULAR Cardiovascular: regular rate, rhythm - GASTROINTESTINAL (ABDOMEN) Abdominal Exam: non tender, soft (FF below umbilicus) - GENITOURINARY Female Genitalia/Pelvic Exam: external exam normal (decreased lochia) - MUSCULOSKELETAL Extremity: non-tender, no calf tenderness - PSYCHIATRIC Psych/Mental Status: normal mood/affect, oriented x 3 Active Medications Generic Name Dose Route Start Last Admin Trade Name Freq PRN Reason Stop Dose Admin Acetaminophen 650 mg 08/15/19 14:40 Tylenol PO Q4-6H PRN PRN Headache Benzocaine 1 each 08/15/19 22:41 08/15/19 23:09 Cecelia Meds (Dermoplast/Nupercainal/Tucks) MISC 1 pkg [id number] PRN PRN Administration episiotomy/hemorrhoids Diphenhydramine HCl 12.5 mg 08/15/19 22:41 Benadryl IV Q4H PRN PRN Itching Diphenhydramine HCl 25 mg 08/15/19 22:41 Benadryl PO Q4H PRN PRN Itching Famotidine 20 mg 08/15/19 14:40 08/15/19 20:46 Pepcid IV 20 mg Q12H PRN PRN Administration GI upset or indigestion Famotidine 40 mg 08/15/19 14:40 Pepcid PO Q12H PRN PRN GI upset or indigestion Ibuprofen 800 mg 08/15/19 22:41 08/16/19 21:03 Motrin PO 800 mg Q8H PRN PRN Administration cramping Labetalol HCl 100 mg 08/15/19 23:45 08/16/19 21:03 Trandate PO 100 mg BID DELIO Administration Misoprostol 800 microgm 08/15/19 22:41 Cytotec PO PRN PRN Severe bleeding Ondansetron HCl 4 mg 08/15/19 14:40 Zofran IV PRN PRN Nausea Oxytocin 20 unit 08/15/19 22:41 Pitocin IM PRN PRN Severe bleeding Senna/Docusate Sodium 1 each 08/16/19 21:00 08/16/19 21:03 Pericolace PO 1 each QHS DELIO Administration Sodium Chloride 5 - 10 ml 08/15/19 14:45 08/15/19 20:46 Sodium Chloride 0.9% INJ 10 ml DIRECTED DELIO Administration Laboratory Results - last 24 hr 08/15/19 08/15/19 08/16/19 14:50 15:58 05:03 Estimat Average Glucose 131 Hemoglobin A1c 6.2 H Hep Bs Antigen SEE COMMENTS HIV 1&2 Antibody Screen SEE COMMENTS OB Assessment & Plan (1) Vaginal delivery Status: Acute Plan: - (2) induced hypertension, delivered, with complication Status: Acute Plan: - (3) Status: Resolved Plan: 33yo s/p with PP HTN -HD stable -reviewed PIH signs/symptoms and advised to return to office should si/sy occur -Con't Labetalol 100 mg PO BID -OOB to ambulation -reg diet -SW consult prior to discharge -Plan for d/c today with f/u in 1 week to assess BP
[2019-08-17 07:53] VITALS: BP 127/68
[2019-08-17] MEDS: TRANDATE PO SCH (09:42)
== END 2019-08-17 11:40 | disposition home or self-care (01) | DRG 807 ==
LOC: P.ED 12:46 → EDSTATUS 13:58 → OPLD 14:12 → LD 14:16
PROVIDERS: ADMIT Obstetrics & Gynecology; ATTEND Obstetrics & Gynecology